=== PATIENT | male | born 1990 | race Caucasian/White ===

== ENCOUNTER 2016-10-19 21:54 | Emergency (ER) | payer MEDICAID ==
[2016-10-19] MEDS ORDERED: SODIUM CHLORIDE 0.9% 2,000 ML ONE (23:32)
[2016-10-20] MEDS ORDERED: KETOROLAC 30 MG/ML VIAL ONE (00:20)
== END 2016-10-20 02:17 | disposition home or self-care (01) ==
LOC: ER 21:54
DX: R73.9 Hyperglycemia, unspecified (principal); R74.8 Abnormal levels of other serum enzymes; R10.9 Unspecified abdominal pain; Z79.4 Long term (current) use of insulin; Z79.899 Other long term (current) drug therapy; F17.210 Nicotine dependence, cigarettes, uncomplicated
CPT/HCPCS: 36415; 36600; 80051; 80053; 81003; 82009; 82330; 82803; 82947; 83690; 85025; 93005; 96361; 96372; 96374